=== PATIENT | female | born 1970 | race Caucasian/White ===

== ENCOUNTER 2018-11-16 21:16 | Emergency (ER) | payer BC ==
[2018-11-16] MEDS ORDERED: NS 0.9% 1000 ML* 1,000 ML IV ONE (22:08)
[2018-11-16] MEDS ORDERED: Ondansetron INJ* 2 MG/ML VIAL IV ONE (22:09)
[2018-11-16] MEDS ORDERED: Morphine VIAL* 4 MG/ML VIAL (1 ml vial) IV ONE (22:09)
--- NOTE | 2018-11-16 22:12 | ED ---
GI/ HPI - HPI Summary HPI Summary: A 47 y/o female presents to [facility] with a chief complaint of rectal bleeding without stool since 20:00 11/16/18, which was 30 minutes after a BM. The patient claims that she has had similar symptoms 2 years ago when she was in [place] but she was discharged. She had a colonoscopy done then and it was good. 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 Mccarthy at [facility]. She takes Trazodone, Prozac and Omeprazole. She c/o abd pain. She denies N/V or fever. She reports a Hx of hemorrhoids 2 years [employer]. 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 - History of Current Complaint Chief Complaint: EDGIBleed Time Seen by Provider: 11/16/18 21:49 Stated Complaint: BLOOD IN STOOL Hx Obtained From: Patient Onset/Duration: Started Hours Ago, Still Present Timing: Constant, Lasting Hours Severity: Mild Current Severity: None Pain Intensity: 7 - out of 10 Location of Pain: LLQ Pain Characteristics: Unable to describe Associated Signs and Symptoms: Positive: Abdominal Pain. Negative: Nausea, Vomiting, Fever Aggravating Factor(s): Nothing Alleviating Factor(s): Nothing - Allergy/Home Medications Allergies/Adverse Reactions: Allergies Allergy/AdvReac Type Severity Reaction Status Date / Time No Known Allergies Allergy Verified 11/16/18 21:20 Home Medications: Home Medications Omeprazole CAP(NF) 20 mg PO DAILY 11/16/18 [History Confirmed 11/16/18] Prozac CAP* 40 mg PO DAILY 11/16/18 [History Confirmed 11/16/18] traZODone TAB* 50 mg PO DAILY 11/16/18 [History Confirmed 11/16/18] PMH/Surg Hx/FS Hx/Imm Hx GI History: Reports: Other GI Disorders - Hemorrhoids, tumor in colon Psychiatric History: Reports: Hx Anxiety - Surgical History Surgery Procedure, Year, and Place: Colectomy about 2013 [facility] Infectious Disease History: No Infectious Disease History: Denies: Traveled Outside the [place] in Last 30 Days - Family History Known Family History: Negative: Diabetes - Social History Alcohol Use: None Hx Substance Use: No Substance Use Type: Reports: None Hx Tobacco Use: No Smoking Status (MU): Never Smoked Tobacco Review of Systems Negative: Fever Positive: Abdominal Pain, Other - Positive: blood without stool after a BM. Negative: Vomiting, Nausea All Other Systems Reviewed And Are Negative: Yes Physical Exam - Summary Physical Exam Summary: VITAL SIGNS: Reviewed. GENERAL: Patient is a well-developed and nourished FEMALE who is lying comfortable in the stretcher. Patient is not in any acute respiratory distress. HEAD AND FACE: No signs of trauma. No ecchymosis, hematomas or skull depressions. No sinus tenderness. EYES: PERRLA, EOMI x 2, No injected conjunctiva, no nystagmus. EARS: Hearing grossly intact. Ear canals and tympanic membranes are within normal limits. MOUTH: Oropharynx within normal limits. NECK: Supple, trachea is midline, no adenopathy, no JVD, no carotid bruit, no c- spine tenderness, neck with full ROM. CHEST: Symmetric, no tenderness at palpation LUNGS: Clear to auscultation bilaterally. No wheezing or crackles. CVS: Regular rate and rhythm, S1 and S2 present, no murmurs or gallops appreciated. ABDOMEN: LLQ tenderness. No signs of distention. No rebound no guarding, and no masses palpated. Bowel sounds are normal. EXTREMITIES: FROM in all major joints, no edema, no cyanosis or clubbing. NEURO: Alert and oriented x 3. No acute neurological deficits. Speech is normal and follows commands. SKIN: Dry and warm Rectal: no masses, hemorrhoids or bleeding Triage Information Reviewed: Yes Vital Signs On Initial Exam: Initial Vitals Temp Pulse Resp BP Pulse Ox 97.6 F 82 16 130/82 96 11/16/18 21:18 11/16/18 21:18 11/16/18 21:18 11/16/18 21:18 11/16/18 21:18 Vital Signs Reviewed: Yes Diagnostics - Vital Signs Vital Signs Temp Pulse Resp BP Pulse Ox 11/16/18 21:18 97.6 F 82 16 130/82 96 - Laboratory Result Diagrams: 11/16/18 22:31 11/16/18 22:31 Lab Statement: Any lab studies that have been ordered have been reviewed, and results considered in the medical decision making process. - CT abdomen/pelvis CT Interpretation Completed By: Radiologist Summary of CT Findings: No acute abdominal or pelvic abnormality. ED physician has reviewed this imaging report. Re-Evaluation - Re-Evaluation First Eval Re-Evaluation Time: 00:32 Change: Improved Comment: Discussed lab and CT results with patient. She is ready for discharge. GIGU Course/Dx - Course Course Of Treatment: A 47 y/o female presents to [facility] with a chief complaint of rectal bleeding without stool since 20:00 11/16/18, which was 30 minutes after a BM. Her physical exam revealed LLQ tenderness and her rectal exam revealed no masses, hemorrhoids or bleeding. Lab results obtained and WNL. In the ED course she received potassium chloride PO, Morphine IV, Zofran IV and Iohexol (Contrast) IV. CT abdomen/pelvis was negative. The patient has a motion picture camera lens technician from her colon resection and was instructed to follow up with that motion picture camera lens technician as soon as possible. She will be discharged. Strict return precautions were given. She is agreeable with this plan. - Diagnoses Provider Diagnoses: Rectal pain, Abdominal pain Discharge - Sign-Out/Discharge Documenting (check all that apply): Patient Departure - DC - Discharge Plan Condition: Stable Disposition: HOME Forms: *Work Release Referrals: Karen ACEVEDO,Wesly Marie [Primary Care Provider] - (1-2 days) Additional Instructions: FOLLOW UP WITH YOUR RADIATOR TESTER SOON POSSIBLE. RETURN TO THE EMERGENCY DEPARTMENT FOR CHANGING OR WORSENING SYMPTOMS. FOLLOW UP WITH PCP IN 1 -2 DAYS. - Billing Disposition and Condition Condition: STABLE Disposition: Home - Attestation Statements Document Initiated by Karena: Yes Documenting Scribe: Peter Prado Provider For Whom Karena is Documenting (Include Credential): Trini Chua MD Scribe Attestation: Peter Grove scribed for Trini Chua MD on 11/17/18 at 0419. Scribe Documentation Reviewed: Yes Provider Attestation: The documentation as recorded by the Peter kong accurately reflects the service I personally performed and the decisions made by me, Trini Chua MD Status of Scribaimee Document: Viewed
[2018-11-16 22:36] VITALS: BP 126/87
[2018-11-16 22:45] LABS: ABS Basophils 0 10^3/ul (0-0.2); ABS Eosinophils 0.1 10^3/ul (0-0.6); ABS Lymphocytes 2.5 10^3/ul (1.0-4.8); ABS Monocytes 0.5 10^3/ul (0-0.8); ABS Neutrophils 3.3 10^3/ul (1.5-7.7); ABS Nucleated RBC 0 10^3/ul; Eosinophil % 1.5 %; Hematocrit 36 % (35-47); Hemoglobin 12.7 g/dl (12.0-16.0); Lymphocyte % 39.3 %; Mean Corpuscular HGB Conc 35 g/dl (31-36); Mean Corpuscular Hemoglobin 32 pg (27-31); Mean Corpuscular Volume 89 fL (80-97); Mean Platelet Volume 7.9 fL (7.4-10.4); Nucleated Red Blood Cells % 0.1; Platelet Count 124 10^3/ul (150-450); Red Blood Count 4.05 10^6/ul (4.00-5.40); Red Cell Distribution Width 14 % (10.5-15); White Blood Count 6.4 10^3/ul (3.5-10.8)
[2018-11-16 22:52] LABS: Activated Partial Thrombo Time 29.8 seconds (26.0-36.3); INR 0.96 (0.77-1.02)
[2018-11-16 22:59] LABS: Albumin/Globulin Ratio 1.4 (1-3); BUN/Creatinine Ratio 22.4 (8-20); C Reactive Protein 11.13 mg/L (<8.01); Calcium 9.1 mg/dL (8.6-10.3); EGFR Non-African American 80.9 (>60); Globulin 2.8 g/dL (2-4); Magnesium 1.8 mg/dL (1.9-2.7); Potassium 3.1 mmol/L (3.5-5.0); Total Bilirubin 1.5 mg/dL (0.2-1.0); Total Protein 6.8 g/dL (6.4-8.9)
[2018-11-16] MEDS ORDERED: Iohexol 300* (CONTRAST) 10 ML SDV IV ONE (23:04)
[2018-11-16] MEDS ORDERED: Potassium Chlor TAB* 20 MEQ TAB.ER PO ONE (23:12)
[2018-11-16 23:25] LABS: Urine Appearance Clear; Urine Bilirubin Negative (Negative); Urine Blood Negative (Negative); Urine Color Yellow; Urine Glucose Negative (Negative); Urine Ketones Negative (Negative); Urine Nitrite Negative (Negative); Urine Protein Negative (Negative); Urine Specific Gravity 1.014 (1.010-1.030); Urine Urobilinogen Negative (Negative)
== END 2018-11-17 00:50 | disposition home or self-care (01) ==
LOC: ED 21:16
DX: K62.89 Other specified diseases of anus and rectum (principal); R10.32 Left lower quadrant pain
CPT/HCPCS: 36415; 74177; 80053; 81003; 82150; 83690; 83735; 85025; 85610; 85730; 86140; 96374; 96375; 99283; A9270-GY; J2270; J2405; Q9967